=== PATIENT | male | born 1960 | race Two or more races ===

== ENCOUNTER 2022-10-10 09:10 | Emergency (ER) | payer MEDICAID ==
[~2022-10-10] VITALS: Ht 170.2 cm; Wt 61.7 kg
[2022-10-10 10:25] LABS: Hematocrit 44.7 % (41.0-53.0); Hemoglobin 15.2 g/dL (13.5-17.5); Mean Corpuscular Hemoglobin 30.6 pg (28.0-32.0); Mean Corpuscular Hgb Conc. 33.9 g/dL (32.0-36.0); Mean Corpuscular Volume 90.3 fL (80.0-100.0); Red Blood Cells 4.95 10^6/uL (4.5-5.90); Red Cell Distribution Width 16.6 % (11.8-14.3); White Blood Cell 12.1 10^3/uL (4.4-10.8)
[2022-10-10 10:29] LABS: Albumin 3.7 g/dL (3.4-5.0); Calcium 9.4 mg/dL (8.5-10.1); Potassium 4.4 mmol/L (3.5-5.1)
[2022-10-10 10:30] LABS: Band Neutrophils % (manual) 0; Basophils % (manual) 0 (0.0-2.0); Blast Cells 0; Eosinophils % (manual) 0 (0-7); Metamyelocytes % 0; Myelocytes % 0; Promyelocytes % 0
[2022-10-10 10:35] LABS: BUN/Creatinine Ratio 17.7 (10.0-20.0); Bilirubin, Total 0.6 mg/dL (0.2-1.0)
[2022-10-10 10:51] LABS: Urine Bacteria NONE SEEN /hpf (None Seen); Urine Blood TRACE /uL (Negative); Urine Mucus MODERATE (None Seen); Urine WBC 1 /hpf (0 - 3)
[2022-10-10] MEDS ORDERED: MECLIZINE HCL 25 MG TAB PO ONE (11:45)
[2022-10-10 11:57] VITALS: PULSE 88; RESP 16; O2SAT 98
[2022-10-10 12:37] LABS: Lymphocytes % (manual) 58 (10.0-50.0); Monocytes % (manual) 1 (0-12); Reactive Lymphocytes 1
[2022-10-10] MEDS ORDERED: PANT40TA2 PO (15:17)
[2022-10-10 15:47] VITALS: BP 144/81; PULSE 62; RESP 18; TEMP 98.1; O2SAT 97
== END 2022-10-10 15:49 | disposition home or self-care (01) ==
LOC: ER 09:10
DX: K21.9 Gastro-esophageal reflux disease without esophagitis (principal); R42 Dizziness and giddiness; I10 Essential (primary) hypertension; E11.9 Type 2 diabetes mellitus without complications; Z79.899 Other long term (current) drug therapy
CPT/HCPCS: 36415; 70450; 71046; 80053; 81001; 82962; 83880; 84484; 85007; 85027; 85379; 93005; 99285; J8597